=== PATIENT | female | born 1950 | race Caucasian/White ===

== ENCOUNTER 2017-06-26 19:52 | Inpatient (IN) | payer MEDICARE ==
[~2017-06-26 19:52] MED LIST: ISOVUE-370 76%-LOCM 1 ML ONE
[2017-06-26 21:02] LABS: #Eosinphils 0.1 thou/uL (0.0-0.7); #Lymphocytes 2.1 thou/uL (1.20-3.40); #Monocytes 0.7 thou/uL (0.11-0.59); %Basophils 0.3 % (0.0-1.0); %Eosinophils 1.4 % (0.0-10.0); %Lymphocytes 20.9 % (21.0-51.0); %Monocytes 6.7 % (0.0-10.0); %Neutrophils 70.7 % (42.0-75.0); Mean Corpuscular Hemoglobin 29.8 pg (27.0-31.0); Mean Corpuscular Volume 87.6 fl (81.0-99.0); Mean Platelet Volume 7.3 fL (7.4-10.4); Platelet Count 249 thou/uL (130-400); Red Blood Cell (RBC) Count 4.71 mill/uL (4.20-5.40); White Blood Cell (WBC) Count 9.9 thou/uL (4.8-10.8)
[2017-06-26 21:29] LABS: ALT (SGPT) 15 U/L (8-55); AST (SGOT) 18 U/L (5-34); Alkaline Phosphatase 100 U/L (40-150); Anion Gap 11 mmol/L (10-20); BUN (Urea Nitrogen) 14 mg/dL (9.8-20.1); Bilirubin, Total 0.2 mg/dL (0.2-1.2); Calc. Creatinine Clearance 0 mL/min (70-130); Calcium 9.8 mg/dL (7.8-10.44); Carbon Dioxide 27 mmol/L (23-31); Chloride 103 mmol/L (98-107); Estimated GFR-MDRD 61; Globulin 3.2 g/dL (2.4-3.5); Glucose 151 mg/dL (80-115); Potassium 3.5 mmol/L (3.5-5.1); Protein, Total 7.2 g/dL (6.0-8.3); Sodium 137 mmol/L (136-145)
[2017-06-26 21:32] LABS: CKMB 1.2 ng/mL (0-6.6); Troponin I 0.035 ng/mL (< 0.028)
[2017-06-26 21:40] LABS: Bilirubin Negative (Negative); Blood, Urine Negative (Negative); Clarity CLEAR (Clear); Glucose, Urine (Dipstick) Negative (Negative); Leukocyte Negative (Negative); Nitrite Negative (Negative); Protein, Urine (Dipstick) Negative (Neg-Trace); Specific Gravity, Urine 1.037 (1.002-1.036); Urobilinogen 0.2 mg/dL (0.2-1.0); pH, Urine 6.5 (5.0-9.0)
--- NOTE | 2017-06-26 21:40 | CT ---
CONTRAST ENHANCED CTA CHEST: History: Chest pain. Technique: Contrast enhanced CTA of the chest was performed. 2D and 3D reconstructed images performed on a 3D workstation. FINDINGS: CTA chest demonstrates no definite evidence of pulmonary parenchymal lesions. No definite evidence of lymphadenopathy is seen. Extensive coronary artery calcifications seen. No evidence of pleural or pericardial effusions seen. A large hiatal hernia is seen. No definite evidence of filling defects seen in the pulmonary arteries to suggest pulmonary emboli. There is some fullness seen in the right adrenal gland, possibly representing a right adrenal mass. C orrelation with possible adrenal MRI electively may be of use to further characterize the right adren al asymmetry. IMPRESSION: 1. Large hiatal hernia. 2. Coronary artery calcifications. 3. Possible right adrenal mass. 4. No evidence of pulmonary emboli. POS: MONA
[2017-06-26] MEDS ORDERED: Nitroglycerin 0.4 MG TAB (25 Tab Bottle) PO PRN (23:31)
[2017-06-26] MEDS ORDERED: Enoxaparin Sodium 100 MG/ML SYRINGE ONE (23:34)
[2017-06-27 00:28] LABS: Troponin I 0.083 ng/mL (< 0.028)
[2017-06-27] MEDS ORDERED: Senokot 8.6 MG TAB PO PRN (00:31)
[2017-06-27] MEDS ORDERED: Acetaminophen 325 MG TAB PO PRN (00:31)
[2017-06-27] MEDS ORDERED: Ondansetron ODT 4 MG TAB SL PRN (00:50)
[2017-06-27] MEDS ORDERED: Ondansetron HCl/PF 4 MG/2 ML Vial IVP PRN (00:50)
--- NOTE | 2017-06-27 01:42 | HP ---
CHIEF COMPLAINT: Chest pain. HISTORY OF PRESENT ILLNESS: Patient is a very pleasant 66-year-old female who presents to the [facility] with complaints of chest tightness x1 day. Patient states that she was at work when she started f eeling chest pressure, felt that a very warm sensation and had some dizziness. Patient denies radiat ion of her chest pain to her upper extremities or her neck area. Denies any nausea, vomiting, or nydia rtness of breath. Patient stated that she has never had this pain before. Patient denies any orthop nelida, PND, or recent increased swelling in her lower extremity. Patient states that symptoms when she goes up and down the stairs. At times on exertion, she does get a little short of breath. Patient states that she has never had catheterization before, but has had a stress test in the past, which paulino s been negative. PAST MEDICAL HISTORY: History of hypertension, hypercholesterolemia. ALLERGIES: She has got no known allergies. MEDICATIONS: She takes something for hypertension and hypercholesterolemia. She does not know her m edications. PAST SURGICAL HISTORY: She has had an appendectomy. SOCIAL HISTORY: She smokes half a pack a day. Denies any alcohol or drug use. She starts smoking [facility] a pack a day for about 4 months ago. Prior to that, she was smoking a pack a day. FAMILY HISTORY: Mother had heart disease. Father was killed when she was a young child and brothers and sisters both had bypass around her same age area. REVIEW OF SYSTEMS: A 12-point review of systems, all the other was negative, except for the ones men tioned in the HPI: Constitutional: Weight loss or gain, sense of well-being, ability to conduct [facility] activities, exercise tolerance. Skin/Breast: Rash, itching, changes in hair growth or loss, nail changes, breast lumps, tenderness, swelling, nipple discharge. Eyes: Vision, double vision, tearin g, blind spots, pain. ENT/Mouth: Headaches (location, time of onset, duration, precipitating factor s), vertigo, lightheadedness, injury. Vision, double vision, tearing, blind spots, pain, nose bleedi ng, colds, obstruction, discharge, dental difficulties, gingival bleeding, dentures, neck stiffness, pain, tenderness, masses in thyroid or other areas. Cardiovascular: Precordial pain, substernal dis tress, palpitations, syncope, dyspnea on exertion, orthopnea, nocturnal paroxysmal dyspnea, edema, cy anosis, hypertension, heart murmurs, varicosities, phlebitis, claudication. Respiratory: Pain, shor tness of breath, wheezing, stridor, cough, hemoptysis, fever or night sweats. Gastrointestinal: Poo r appetite, dysphagia, indigestion, abdominal pain, heartburn, eructation, nausea, vomiting, hemateme sis, jaundice, constipation, or diarrhea, abnormal stools (jackie-colored, tarry, bloody, greasy, foul smelling), flatulence, hemorrhoids, recent changes in bowel habits. Genitourinary: Urgency, frequen cy, dysuria, nocturia, hematuria, polyuria, oliguria, unusual (or change in) color of urine, stones, hesitancy, change in size of stream, dribbling, acute retention or incontinence, libido, potency. Mu sculoskeletal: Pain, swelling, redness or heat of muscles or joints, limitation, of motion, muscular weakness, atrophy, cramps. Neurologic/Psychiatric: Convulsions, paralyses, tremor, incoordination, paresthesias, difficulties with memory of speech, sensory or motor disturbances, or muscular coordin ation (ataxia, tremor), emotional problems, anxiety, depression, previous psychiatric care, unusual p erceptions, hallucinations. Allergy/Immunologic: Skin rash, anemia, bleeding tendency, polydipsia, polyuria, intolerance to heat or cold. PHYSICAL EXAMINATION. VITAL SIGNS: Temperature of 98.3, 94% on room air, and heart rate is 90, 164/70. GENERAL: She is awake, alert, oriented x3. Does not appear in any distress. CARDIOVASCULAR: S1, S2 present. No murmurs, rubs, or gallops. Pain upon palpation of the chest wal l area. HEENT: Normocephalic, atraumatic. NECK: No lymphadenopathy noted. LUNGS: Clear to auscultation. No rhonchi, wheezes noted. ABDOMEN: Soft, nontender. Bowel sounds are present x2. No hepatomegaly, splenomegaly; however, pat ient's abdomen is obese. NEURO: Awake, alert, oriented. No focal deficits noted. SKIN: Warm, dry, and intact. No rashes, lesions, or edema noted. PSYCHIATRIC: She is normal affect. LABORATORY RESULTS: Are as the following, her BNP was 12.4. Troponin was 0.035. Sodium was 137, po tassium of 3.5, chloride of 103, BUN of 14, creatinine 0.92, glucose was 151. D-dimer was elevated a t 0.98, so she underwent a CTA of the chest which indicated a large hiatal hernia, coronary artery ca lcification, possible right adrenal mass, and no evidence of pulmonary emboli. WBCs of 9.9, hemoglob in of 14.0, hematocrit of 41.2. No ST elevation or depression noted. ASSESSMENT AND PLAN: Patient is a very pleasant 66-year-old female who presents to the hospital with complaints of chest pain. 1. [id number] elevation myocardial infarction. We will start patient on some Lovenox 1 mg/kg b. i.d. We will continue to trend troponins. We will consult Cardiology. We will also do a stress lasha t, given patient's risk factors of hypertension, high-cholesterol, and smoking history. She is a hig h risk for coronary artery disease. We will also check a lipid level in the morning. Patient does h ave a significant large hiatal hernia, which could be causing her to have the chest pain, however, un known. 2. Hypertension. We will continue her home medications. 3. Right adrenal mass, which was noted on the CTA. Patient will need an outpatient workup. 4. Hypercholesterolemia. We will start patient back on her statin tonight. 5. Smoking cessation. Patient educated upon smoke cessation; however, she states she is not ready. She refused a patch.
[2017-06-27 03:29] LABS: #Basophils 0.1 thou/uL (0.0-0.2); #Eosinphils 0.2 thou/uL (0.0-0.7); #Lymphocytes 3.1 thou/uL (1.20-3.40); #Monocytes 0.7 thou/uL (0.11-0.59); #Neutrophils 5.8 thou/uL (1.40-6.50); %Basophils 0.6 % (0.0-1.0); %Lymphocytes 31.6 % (21.0-51.0); %Monocytes 7.2 % (0.0-10.0); %Neutrophils 58.6 % (42.0-75.0); Hemoglobin 13.3 g/dL (12.0-16.0); Mean Corpuscular HGB CONC 33.6 g/dL (32.0-36.0); Mean Corpuscular Hemoglobin 29.3 pg (27.0-31.0); Mean Corpuscular Volume 87.3 fl (81.0-99.0); Platelet Count 254 thou/uL (130-400); RBC Distribution Width 12.1 % (11.5-14.5); Red Blood Cell (RBC) Count 4.54 mill/uL (4.20-5.40); White Blood Cell (WBC) Count 9.8 thou/uL (4.8-10.8)
[2017-06-27 03:43] LABS: Anion Gap 10 mmol/L (10-20); BUN (Urea Nitrogen) 14 mg/dL (9.8-20.1); Calc. Creatinine Clearance 0 mL/min (70-130); Calcium 9.5 mg/dL (7.8-10.44); Carbon Dioxide 30 mmol/L (23-31); Cardiac Risk 3.8 (Less than 4.5); Chloride 103 mmol/L (98-107); Cholesterol 135 mg/dl (< 200 Desired); Estimated GFR-MDRD 61; Glucose 97 mg/dL (80-115); HDL Cholesterol 36 mg/dL (>60 Neg Risk); LDL Cholesterol, Calculated 71 mg/dL; Potassium 4.2 mmol/L (3.5-5.1); Sodium 139 mmol/L (136-145); Triglycerides 139 mg/dL (Less than 150)
[2017-06-27 03:47] LABS: Troponin I 0.085 ng/mL (< 0.028)
[2017-06-27 04:25] VITALS: BMI 33.5
[2017-06-27 06:20] LABS: CKMB 1.4 ng/mL (0-6.6); Troponin I 0.055 ng/mL (< 0.028)
[2017-06-27] MEDS ORDERED: Aspirin 325 MG TAB PO SCH (09:00)
[2017-06-27] MEDS ORDERED: Enoxaparin Sodium 100 MG/ML SYRINGE SC SCH (09:00)
--- NOTE | 2017-06-27 09:26 | PDOC.PN ---
- Subjective Encounter Start Date: 06/27/17 Encounter Start Time: 11:00 Subjective: Patient with some soreness to left chest, no further pain. No other -: complaints. - Objective Resuscitation Status: Resuscitation Status FULL:Full Resuscitation MAR Reviewed: Yes Vital Signs & Weight: Vital Signs (12 hours) Temp Pulse Resp BP Pulse Ox 06/27/17 07:48 98.2 F 66 16 142/80 H 94 L 06/27/17 03:36 98.0 F 76 16 145/73 H 94 L 06/27/17 00:34 98.0 F 76 16 155/83 H 93 L Weight Weight 195 lb 8 oz I&O: 06/26/17 06/27/17 06/28/17 06:59 06:59 06:59 Intake Total 120 Balance 120 Result Diagrams: 06/27/17 03:16 06/27/17 03:16 Phys Exam - Physical Examination Constitutional: NAD HEENT: moist MMs Respiratory: no wheezing, no rales, no rhonchi TTP left anterior chest wall reproduces pain Cardiovascular: RRR, no significant murmur Gastrointestinal: soft, positive bowel sounds Neurological: non-focal, moves all 4 limbs Psychiatric: normal affect, A&O x 3 Dx/Plan (1) Chest pain, rule out acute myocardial infarction Code(s): R07.9 - CHEST PAIN, UNSPECIFIED Status: Acute Comment: Indeterminate troponins, stable on recheck, neg EKG. Patient with coronary calcifications on CT. Will check stress test. If abnormal will need cardiology consultation. (2) HTN (hypertension) Code(s): I10 - ESSENTIAL (PRIMARY) HYPERTENSION Status: Chronic (3) Hyperlipidemia Code(s): E78.5 - HYPERLIPIDEMIA, UNSPECIFIED Status: Chronic (4) Tobacco abuse Code(s): Z72.0 - TOBACCO USE Status: Chronic (5) Adrenal mass, right Code(s): E27.9 - DISORDER OF ADRENAL GLAND, UNSPECIFIED Status: Acute Comment: f/u for outpatient workup - Plan cont current plan of skilled nursing if stress test negative * . - Discharge Day Encounter end time: 11:15
[2017-06-27 11:28] VITALS: BP 145/78; TEMP 98.4
--- NOTE | 2017-06-27 11:53 | NM ---
MYOCARDIAL PERFUSION AND QUANTITATIVE GATED SPECT STUDY: HISTORY: Chest pain. DOSE: 33 mCi of Technetium 99m Cardiolite for the stress portion of the exam and 11 mCi for the resting por tion of the exam. FINDINGS: The patient was stressed using 0.4 mg of LexiScan given IV. Heart rate ronan from 84 b.p.m. up to a m aximum of 134 b.p.m. which radiates 88% of maximum age-predicted heart rate. Myocardial effusion is unremarkable. No evidence of reversible defect is seen. No evidence of myoca rdial ischemia or scar is seen. Ejection fraction measures 86%. IMPRESSION: Normal myocardial perfusion and quantitative gated SPECT study. POS: MON[facility]
[2017-06-27] MEDS ORDERED: Regadenoson 0.4 MG/5 ML SYRINGE ONE (14:01)
[2017-06-27] MEDS ORDERED: Atorvastatin Calcium 40 MG TAB PO SCH (21:00)
--- NOTE | 2017-06-28 04:47 | DIS ---
PRIMARY CARE PHYSICIAN: ANN Mcdowell REASON FOR ADMISSION: Chest pain. DIAGNOSES AT DISCHARGE: 1. Chest pain, resolved. 2. Hypertension. 3. Hyperlipidemia. 4. Tobacco abuse. 5. Incidental finding of possible right adrenal mass. PROCEDURES: 1. CT angio of the chest and thorax showing large hiatal hernia, coronary artery calcifications, pos sible right adrenal mass fullness seen there unable to characterize the size. MRI recommended no david dence of pulmonary emboli. 2. Nuclear medicine stress test showing no evidence for ischemic heart disease or scar. CONSULTATIONS: None. PERTINENT LABORATORY DATA: Initial troponin 0.083, 0.085, and 0.055 before discharge. Fasting trigl ycerides are 139 and fasting cholesterol is 135. SUMMARY OF HOSPITAL COURSE: This is a 66-year-old female with history of chest tightness for 1 day o n the left side, associated with a warm sensation and some dizziness. She was seen in the emergency room, had no EKG changes and did have the indeterminate troponins and elevated D-dimer. CTA was done with above results. Patient was admitted to the hospital. Stress test was done due to patient's ri sk factors, and the stress test come back negative. Patient's chest pain resolved during the hospita lization. She has some left chest soreness; however, which reproduced the pain on palpation. She wa s discharged to follow up with primary care physician. She also was instructed to follow up about th e possible right adrenal mass. DISCHARGE MANAGEMENT: Discharged home. Follow up with primary care physician in 3 days. We will ne ed an MRI for the right adrenal mass. ACTIVITY: As tolerated. DIET: Healthy-heart diet. MEDICATIONS: Patient is to resume all her medications: 1. Amlodipine 5 mg daily. 2. Atorvastatin 20 mg daily. 3. Lisinopril/hydrochlorothiazide 20/12.5 mg daily.
== END 2017-06-27 14:06 | disposition home or self-care (01) | DRG 313 ==
LOC: ERS 19:52 → 2SE 06-27 00:07
PROVIDERS: ADMIT Internal Medicine; ATTEND Internal Medicine
DX: R07.9 Chest pain, unspecified (principal); I10 Essential (primary) hypertension; E78.5 Hyperlipidemia, unspecified; F17.210 Nicotine dependence, cigarettes, uncomplicated; Z79.899 Other long term (current) drug therapy; E27.9 Disorder of adrenal gland, unspecified
CPT/HCPCS: 36415; 71275; 78452; 80048; 80061; 82553; 83880; 84484; 85025; 85379; 93005; 93017; 96372; A9500; J1650; J2785

== ENCOUNTER 2017-07-21 05:52 | Inpatient (IN) | payer MEDICARE ==
[2017-07-21] MEDS ORDERED: Lidocaine 1% (PF) 30 ML VIAL ONE (06:50)
[2017-07-21] MEDS ORDERED: Fentanyl 100 MCG/2 ML VIAL ONE (06:53)
[2017-07-21] MEDS ORDERED: Midazolam HCl 2 mg/2 ml Vial ONE (06:53)
[2017-07-21] MEDS ORDERED: Diazepam 5 MG TAB ONE (07:19)
[2017-07-21] MEDS ORDERED: Diazepam 5 MG TAB PO SCH (07:45)
[2017-07-21 07:48] LABS: PTT 33.3 SEC (22.9-36.1); Prothrombin Time 13.5 SEC (12.0-14.7)
[2017-07-21] MEDS ORDERED: Nitroglycerin 100MG/250ML BOT 250 ML ONE (08:21)
[2017-07-21] MEDS ORDERED: Heparin 10,000 UNITS/1 ML VIAL ONE (08:21)
[2017-07-21] MEDS ORDERED: Verapamil 5 MG/2 ML VIAL ONE (08:21)
[2017-07-21] MEDS ORDERED: Ondansetron HCl/PF 4 MG/2 ML Vial IVP PRN (12:27)
[2017-07-21] MEDS ORDERED: Milk Of Magnesia 30 ML UDCUP PO PRN (12:27)
[2017-07-21] MEDS ORDERED: Diazepam 5 MG TAB PO PRN (12:31)
[2017-07-21] MEDS ORDERED: Communication Order-Pharmacy FS SCH (12:31)
--- NOTE | 2017-07-21 13:04 | CON ---
DATE OF CONSULTATION: 07/21/2017 HISTORY OF PRESENT ILLNESS: Ms. 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 When she has been vacuuming, she has noted that she has become increasingly more fatigued earlier serene n she should. She was recently in the hospital. During that time, she stopped smoking. She also paulino d a negative stress test. Due to her symptomatology, she underwent cardiac catheterization today. H er ejection fraction is approximately 60% on left ventriculogram. She has 3-vessel disease with pote ntial bypassable targets including LAD, diagonal, OM, and distal right coronary. I have been asked t o see her to discuss coronary artery bypass grafting. PAST MEDICAL HISTORY: 1. Hypertension. 2. Hyperlipidemia. PAST SURGICAL HISTORY: Appendectomy. CURRENT MEDICATIONS: 1. Atorvastatin 20 mg at bedtime. 2. Lisinopril/HCTZ 20/12.5 daily. ALLERGIES: None. SOCIAL HISTORY: She just recently quit smoking. She is and accompanied by her and s on. REVIEW OF SYSTEMS: Ten-point review of systems is performed and is negative except as above. PHYSICAL EXAMINATION: GENERAL: This is a well-developed, well-nourished woman resting comfortably in bed. VITAL SIGNS: Height 5 feet 4 inches, weight 200 pounds, BSA is 2.02, heart rate is 74 and regular, b lood pressure is 127/76. HEENT: Sclerae nonicteric. Pupils are equal and round bilaterally. NECK: Supple without bruit. CHEST: Clear bilaterally. HEART: Rhythm is regular without murmur. ABDOMEN: Soft and nontender. EXTREMITIES: No cyanosis, clubbing or edema. VASCULAR: There is palpable carotid, radial, femoral, and dorsalis pedis pulses bilaterally. VENOUS: There are no venous varicosities or venous stasis changes. PSYCHIATRIC: The patient is awake, alert, and oriented to person, place, and time. ASSESSMENT AND PLAN: Very pleasant 66-year-old woman with 3-vessel disease and preserved left ventri cular function. Risks, benefits, and options of coronary artery bypass grafting have been discussed and she is agreeable to proceed. We will plan on getting her in the hospital and have surgery tomorr ow.
[2017-07-21 13:19] LABS: Hemoglobin A1c 5.9 % (4.0-6.0)
--- NOTE | 2017-07-21 14:16 | RAD ---
TWO VIEWS CHEST: Comparison: 06-26-17 History: Pre-operative radiograph. FINDINGS: Two views of the chest show normal sized cardiomediastinal silhouette. There is no evidence of consol idation, mass, or pleural effusion. Mild degenerative changes are seen in the spine. IMPRESSION: No evidence of acute cardiopulmonary disease. POS: H
--- NOTE | 2017-07-21 14:32 | EKG ---
Test Reason : PREOP Blood Pressure : / mmHG Vent. Rate : 059 BPM Atrial Rate : 059 BPM P-R Int : 152 ms QRS Dur : 078 ms QT Int : 420 ms P-R-T Axes : 068 007 028 degrees QTc Int : 415 ms Sinus bradycardia Otherwise normal ECG When compared with ECG of 26-JUN-2017 20:05, Vent. rate has decreased BY 34 BPM Criteria for Inferior infarct are no longer Present Non-specific change in ST segment in Lateral leads Nonspecific T wave abnormality no longer evident in Lateral leads Confirmed by TONNY BEASLEY ([id number]) on 07/21/2017 2:31:50 PM Referred By: JAYDON Confirmed By:TONNY BEASLEY
[2017-07-21] MEDS ORDERED: Nitroglycerin 0.4 MG TAB (25 Tab Bottle) SL PRN (15:06)
[2017-07-21] MEDS ORDERED: traMADol HCl 50 MG TAB PO PRN (15:06)
[2017-07-21] MEDS ORDERED: Acetaminophen/Codeine 30-300mg Tablet PO PRN ×2 (15:06)
[2017-07-21] MEDS ORDERED: Sodium Chloride 0.9% 1,000 ML IV SCH (15:06)
[2017-07-21] MEDS ORDERED: Famotidine/PF 20 mg/2ml Vial SLOW IVP SCH (21:00)
[2017-07-21] MEDS: Famotidine 20 MG TAB PO SCH (21:02)
[2017-07-22] MEDS ORDERED: CEFAZOLIN/Water 2 GM/20 ML SYRINGE SLOW IVP SCH (05:00)
[2017-07-22] MEDS ORDERED: CEFAZOLIN/Water 2 GM/20 ML SYRINGE ONE (06:12)
[2017-07-22] MEDS ORDERED: Albumin 5% 500 ML ONE (06:24)
[2017-07-22] MEDS ORDERED: Dexmedetomidine 200 MCG/2 ML VIAL ONE (06:37)
[2017-07-22] MEDS ORDERED: Heparin 10,000 UNITS/1 ML VIAL 30,000 UNITS in Sodium Chloride 0.9% 1,000 ML FS SCH (07:00)
[2017-07-22] MEDS ORDERED: Midazolam HCl 2 mg/2 ml Vial ONE (07:29)
[2017-07-22] MEDS ORDERED: PHENYLEPHRINE-NS 100 MCG/ML 10 ML SYRINGE ONE ×2 (09:00→15:49)
[2017-07-22] MEDS ORDERED: Insulin Regular 300 UNITS/3 ML VIAL ONE (09:00)
[2017-07-22] MEDS: Famotidine 20 MG TAB PO SCH (09:00)
[2017-07-22] MEDS ORDERED: Phenylephrine HCL 10 MG/ML VIAL ONE (09:01)
[2017-07-22 13:18] LABS: Actual Bicarbonate (HCO3a) 26.9 mEq/L (22-28); Base Excess (BEa) 1.6 mEq/L (-2.0 to +3.0); CO2 Tension 45.4 mmHg (35.0-45.0); O2 Tension (PaO2) 164.2 mmHg (> 80.0); pH, Arterial 7.39 (7.35-7.45)
[2017-07-22 13:19] LABS: Hemoglobin (Hb) 10.4 g/dL (12.0-16.0)
[2017-07-22 13:20] LABS: Calcium, Ionized 1.1 mmol/L (1.12-1.30); Puncture Site A-LINE
--- NOTE | 2017-07-22 13:20 | RAD ---
PORTABLE SUPINE CHEST: Date: 07/22/17 HISTORY: Post sternotomy evaluation. FINDINGS/IMPRESSION: ET tube is in place with tip above guido. Central line has tip overlying the right atrium. Chest amie inage catheters are noted. The lungs are aerated and clear of infiltrate. Mild vascular congestion is noted. POS: [facility]
[2017-07-22] MEDS ORDERED: Hetastarch 6% 500 ML 500 ML IVPB PRN (13:22)
[2017-07-22] MEDS ORDERED: Bisacodyl 10 MG SUPP PR PRN (13:22)
[2017-07-22] MEDS ORDERED: Bisacodyl 5 MG TAB PO PRN (13:22)
[2017-07-22] MEDS ORDERED: Fentanyl 100 MCG/2 ML VIAL SLOW IVP PRN (13:22)
[2017-07-22] MEDS ORDERED: D5 1/2 NS w/20 mEq KCL 1,000 ML IV SCH (13:22)
[2017-07-22] MEDS ORDERED: Promethazine HCl 25 MG/ML VIAL IM PRN (13:22)
[2017-07-22] MEDS ORDERED: Acetaminophen 325 MG TAB PO PRN (13:22)
[2017-07-22] MEDS ORDERED: HYDROcodone/Acetaminophen 5/325 mg Tablet PO PRN (13:22)
[2017-07-22] MEDS ORDERED: hydrALAZINE 20 MG/ML VIAL SLOW IVP PRN (13:22)
[2017-07-22] MEDS ORDERED: Ondansetron HCl/PF 4 MG/2 ML Vial IVP PRN (13:22)
[2017-07-22] MEDS ORDERED: Guaifenesin DM 100-10/5 ML UDCUP PO PRN (13:22)
[2017-07-22] MEDS ORDERED: Mag-Al 1200 mg/1200 mg/30 ML UDCUP PO PRN (13:22)
[2017-07-22] MEDS ORDERED: Magnesium 2 GM/NS 0.9% 100 ML 2 GM in Premix Bag 1 BAG IVPB SCH (13:22)
[2017-07-22] MEDS ORDERED: Norepinephrine 8 MG/0.9% NS 250 ML IVPB PRN (13:22)
[2017-07-22] MEDS ORDERED: Potassium Chloride 20 MEQ/100 ML PREMIX BAG IVPB PRN (13:22)
[2017-07-22] MEDS ORDERED: Post-Op Insulin Drip Protocol IVPB ONE (13:22)
[2017-07-22] MEDS ORDERED: Nitroglycerin 50 MG/250 ML BOT 250 ML IVPB PRN (13:22)
[2017-07-22] MEDS ORDERED: Insulin Regular 300 UNITS/3 ML VIAL SC PRN (13:36)
[2017-07-22] MEDS ORDERED: Dextrose 5% in Water 1,000 ML IV PRN (13:36)
[2017-07-22] MEDS ORDERED: Dextrose 50% Abboject 50 ML SYRINGE SLOW IVP PRN (13:36)
[2017-07-22 13:40] LABS: PTT 31.5 SEC (22.9-36.1)
[2017-07-22 13:41] LABS: INR-International Normal Ratio 1.5; Prothrombin Time 18.1 SEC (12.0-14.7)
[2017-07-22 13:42] LABS: Anion Gap 5 mmol/L (10-20); BUN (Urea Nitrogen) 12 mg/dL (9.8-20.1); Calc. Creatinine Clearance 92 mL/min (70-130); Carbon Dioxide 31 mmol/L (23-31); Chloride 110 mmol/L (98-107); Estimated GFR-MDRD 67; Glucose 103 mg/dL (80-115); Potassium 3.7 mmol/L (3.5-5.1); Sodium 142 mmol/L (136-145)
[2017-07-22 13:45] LABS: #Eosinphils 0.2 thou/uL (0.0-0.7); #Lymphocytes 1.4 thou/uL (1.20-3.40); #Monocytes 0.8 thou/uL (0.11-0.59); #Neutrophils 8.3 thou/uL (1.40-6.50); %Basophils 0.4 % (0.0-1.0); %Eosinophils 1.4 % (0.0-10.0); %Lymphocytes 12.7 % (21.0-51.0); %Monocytes 7.4 % (0.0-10.0); %Neutrophils 78.1 % (42.0-75.0); Mean Corpuscular HGB CONC 34.4 g/dL (32.0-36.0); Mean Corpuscular Hemoglobin 29.7 pg (27.0-31.0); Mean Corpuscular Volume 86.2 fl (81.0-99.0); Mean Platelet Volume 7.9 fL (7.4-10.4); Platelet Count 121 thou/uL (130-400); Red Blood Cell (RBC) Count 3.36 mill/uL (4.20-5.40); White Blood Cell (WBC) Count 10.7 thou/uL (4.8-10.8)
[2017-07-22] MEDS: Ketorolac Tromethamine 30 MG/ML VIAL IVP SCH ×2 (13:45→20:51)
--- NOTE | 2017-07-22 14:02 | PDOC.CTH ---
Cardiology Progress Note - Subjective She had CABG earlier today. Currently intubated but following commands. - Objective Vital Signs Temp Pulse Resp BP BP Pulse Ox 07/22/17 13:22 73 102/57 L 07/22/17 03:52 97.9 F 80 18 129/61 95 Weight 200 lb 07/21/17 07/22/17 07/23/17 06:59 06:59 06:59 Intake Total 988 Output Total 450 Balance 538 - Physical Examination General/Neuro: alert & oriented x3, NAD Neck: no JVD present Lungs: CTA, unlabored respirations Heart: RRR Abdomen: NT/ND Extremities: other: (1+ left leg) - Telemetry Telemetry Rhythm: NSR - Labs Result Diagrams: 07/22/17 12:09 07/22/17 12:09 - Assessment/Plan 1. Multivessel CAD 2. S/P CABG 3. Tobacco abuse. PLAN: - Continue supportive care. - Aspirin and statin for life - BB and ACEI once BP allows. - Will follow.
--- NOTE | 2017-07-22 14:19 | OP ---
DATE OF PROCEDURE: 07/22/2017 PREOPERATIVE DIAGNOSES: Coronary artery disease/hypertension/hyperlipidemia. POSTOPERATIVE DIAGNOSES: Coronary artery disease/hypertension/hyperlipidemia. PROCEDURE: Coronary artery bypass grafting x4: 1. Left internal mammary artery in sequence to a 1.25 mm diagonal and 1.25 mm distal LAD. 2. Reverse saphenous vein to 1.5 mm OM. 3. Reverse saphenous vein to 2.5 mm distal RCA. SURGEONS: Dr. Mehdi Spangler, Dr. Casey La. ANESTHESIA: General endotracheal, Dr. Dick Aiken and . PUMP TIME: 66 minutes. CROSS-CLAMP TIME: 40 minutes. LOW CORE TEMP: 32-degree Celsius. MAINTENANCE MECHANIC ELEVATORS: Neli Ortega. DRAINS: 24-Slovenian chest tubes x2. DRIPS: None. TRANSFUSIONS: None. PROCEDURE IN DETAIL: After consent was obtained, the patient was brought to the operating room and p laced in the supine position on the operating room table. Appropriate anesthetic monitor was placed and general endotracheal anesthesia induced. Chest, abdomen, and legs were prepped and draped in usu al sterile fashion. Using endoscopic technique, the left greater saphenous vein was harvested from t he thigh. Wound was irrigated and closed in layers. Median sternotomy was performed. Left internal mammary artery was harvested as a pedicle graft. The patient was systemically heparinized. Distal pedicle was divided and infused with papaverine. Thymic fat and pericardium were divided with electr ocautery. Pericardial stay sutures were placed. Aortic and atrial cannulation was performed. After adequate heparinization, retrograde prime was performed. The patient was placed on cardiopulmonary bypass. Distal targets were marked. Aortic cross-clamp was applied and antegrade sanguinous cardiop legic arrest obtained. One liter of antegrade cold [place] cardioplegia was given. Topical cold so lution was used. Reverse saphenous vein was anastomosed distal RCA in end-to-side fashion with runni ng 7-0 Prolene suture. Anastomosis was tested and was hemostatic. Reverse saphenous vein was anasto mosed to the OM and saphenous running 7-0 Prolene suture. Anastomosis was tested and was hemostatic. Mammary artery was brought through a window in the pericardium and anastomosed the diagonal in a si de-to-side fashion and the LAD in end-to-side fashion. On release of mammary clamps, good hooding in the anastomosis and good distal flow. Pedicle secured with interrupted 6-0 Prolene suture. Cross-c lamp was removed and partial occluding clamp placed. Saphenous veins were anastomosed individual pun ch sites with running 6-0 Prolene suture. Partial occluding clamp removed and grafts deaired. Anast omoses were inspected for hemostasis, which was good. The patient was warmed and weaned from cardiop ulmonary bypass. After resumption of sinus rhythm, good hemodynamics, and temperature greater than 3 6.5, bypass was discontinued. Transfusions were given. Protamine was administered. Decannulation w as performed and pursestring sutures secured. After adequate hemostasis had been obtained, sternum w as treated with vancomycin paste. A 24-Slovenian chest tubes were placed in mediastinum x2. Again, hem ostasis was ensured. Sternum was closed with #7 wire. Sternum was treated with platelet-rich plasma , and wires twisted. Wounds were irrigated, treated with platelet-poor plasma, and closed in multipl e layers. Needle, sponge, and instrument counts were all reported correct at the end of the procedur e.
[2017-07-22] MEDS: CEFAZOLIN/Water 2 GM/20 ML SYRINGE SLOW IVP SCH ×2 (15:18→21:02)
[2017-07-22] MEDS ORDERED: Heparin 30,000 units/30 ml VIAL ONE (15:49)
[2017-07-22] MEDS ORDERED: Vecuronium 10 MG VIAL ONE (15:49)
[2017-07-22] MEDS ORDERED: Thrombin 5000 UNITS/5 ML VIAL ONE (15:49)
[2017-07-22] MEDS ORDERED: Papaverine 60 MG/2 ML VIAL ONE (15:49)
[2017-07-22] MEDS ORDERED: Heparin 5,000 UNITS/ML VIAL ONE (15:49)
[2017-07-22] MEDS ORDERED: Sodium Bicarb 50 MEQ/50 ML VIAL ONE (15:49)
[2017-07-22] MEDS ORDERED: Metoprolol Tartrate 5 MG/5 ML VIAL ONE (15:49)
[2017-07-22] MEDS ORDERED: Protamine Sulfate 250 MG/25 ML VIAL ONE (15:49)
[2017-07-22] MEDS ORDERED: Potassium Chlo 10 mEq/5 ml Syr ONE (15:49)
[2017-07-22] MEDS ORDERED: Magnesium 5 GM/10 ML VIAL ONE (15:49)
[2017-07-22] MEDS ORDERED: Lidocaine 2% PF 100 mg/5 ml Syringe ONE (15:49)
[2017-07-22] MEDS ORDERED: Glycopyrrolate 0.2 MG/ML 5 ML SYRINGE ONE (15:49)
[2017-07-22] MEDS ORDERED: Mannitol 12.5 GM/50 ML ONE (15:49)
[2017-07-22] MEDS ORDERED: ePHEDrine/0.9% NaCl/PF SYRINGE 50 mg/10 ml ONE (15:49)
[2017-07-22] MEDS ORDERED: Cardioplegic Soln 1,000 ML BAG ONE (15:49)
[2017-07-22] MEDS ORDERED: Albumin 25% 25 GM/100 ML BOT ONE (15:49)
[2017-07-22] MEDS ORDERED: PROPOFOL 200 MG/20 ML VIAL ONE (15:49)
[2017-07-22] MEDS ORDERED: Calcium Chloride 1 GM/10 ML Abboject SYRINGE ONE (15:49)
[2017-07-22] MEDS: Fentanyl 100 MCG/2 ML VIAL SLOW IVP PRN ×3 (15:56→23:14)
[2017-07-22 17:12] LABS: Hemoglobin 10.6 g/dL (12.0-16.0)
[2017-07-22 17:47] LABS: Potassium 4.4 mmol/L (3.5-5.1)
[2017-07-22] MEDS: Famotidine/PF 20 mg/2ml Vial SLOW IVP SCH (20:55)
[2017-07-23] MEDS: Ketorolac Tromethamine 30 MG/ML VIAL IVP SCH ×4 (01:05→21:29)
[2017-07-23] MEDS: HYDROcodone/Acetaminophen 5/325 mg Tablet PO PRN ×5 (04:42→23:42)
[2017-07-23 04:51] LABS: #Lymphocytes 1.4 thou/uL (1.20-3.40); #Monocytes 0.9 thou/uL (0.11-0.59); #Neutrophils 7.9 thou/uL (1.40-6.50); %Basophils 0.1 % (0.0-1.0); %Eosinophils 0.2 % (0.0-10.0); %Lymphocytes 13.7 % (21.0-51.0); %Monocytes 9.2 % (0.0-10.0); %Neutrophils 76.9 % (42.0-75.0); Hemoglobin 9.8 g/dL (12.0-16.0); Mean Corpuscular HGB CONC 32.7 g/dL (32.0-36.0); Mean Corpuscular Hemoglobin 28.7 pg (27.0-31.0); Mean Corpuscular Volume 87.5 fl (81.0-99.0); Platelet Count 139 thou/uL (130-400); RBC Distribution Width 12.2 % (11.5-14.5); Red Blood Cell (RBC) Count 3.41 mill/uL (4.20-5.40); White Blood Cell (WBC) Count 10.3 thou/uL (4.8-10.8)
[2017-07-23 05:02] LABS: Anion Gap 9 mmol/L (10-20); BUN (Urea Nitrogen) 14 mg/dL (9.8-20.1); Calc. Creatinine Clearance 106 mL/min (70-130); Calcium 7.9 mg/dL (7.8-10.44); Carbon Dioxide 27 mmol/L (23-31); Chloride 106 mmol/L (98-107); Estimated GFR-MDRD 75; Glucose 118 mg/dL (80-115); Sodium 138 mmol/L (136-145)
[2017-07-23] MEDS: CEFAZOLIN/Water 2 GM/20 ML SYRINGE SLOW IVP SCH (05:33)
[2017-07-23 06:29] VITALS: BMI 35.0
[2017-07-23] MEDS ORDERED: Dextrose 5% in Water 1,000 ML IV PRN ×2 (08:49→13:51)
[2017-07-23] MEDS ORDERED: Dextrose 50% Abboject 50 ML SYRINGE SLOW IVP PRN ×2 (08:49→13:51)
[2017-07-23] MEDS ORDERED: Insulin Regular 300 UNITS/3 ML VIAL SC PRN (08:49)
[2017-07-23] MEDS: Famotidine/PF 20 mg/2ml Vial SLOW IVP SCH (08:54)
[2017-07-23] MEDS ORDERED: Aspirin 325 MG TAB PO SCH (09:00)
[2017-07-23] MEDS ORDERED: Magnesium 2 GM/NS 0.9% 100 ML 2 GM in Premix Bag 1 BAG IVPB SCH (09:00)
--- NOTE | 2017-07-23 09:02 | RAD ---
PORTABLE CHEST: Date: 07/23/17 COMPARISON: Prior day's exam. HISTORY: Postop open heart surgery. FINDINGS: Heart size is enlarged. There are postop sternotomy changes. Right subclavian line remains in place. Endotracheal tube has been removed. Left chest tube remains in unchanged position. Subsegmental atele ctatic changes are seen in the bases. IMPRESSION: Interval removal of the endotracheal tube. Otherwise no interval change. POS: JOSE ROBERTO
[2017-07-23] MEDS ORDERED: Acetaminophen 325 MG TAB PO PRN (12:44)
[2017-07-23] MEDS ORDERED: Nitroglycerin 0.4 MG TAB (25 Tab Bottle) SL PRN (12:44)
[2017-07-23] MEDS ORDERED: Guaifenesin DM 100-10/5 ML UDCUP PO PRN (12:44)
[2017-07-23] MEDS ORDERED: Fentanyl 100 MCG/2 ML VIAL SLOW IVP PRN (12:44)
[2017-07-23] MEDS ORDERED: HYDROcodone/Acetaminophen 5/325 mg Tablet PO PRN (12:44)
[2017-07-23] MEDS ORDERED: Mag-Al 1200 mg/1200 mg/30 ML UDCUP PO PRN (12:44)
[2017-07-23] MEDS ORDERED: Bisacodyl 10 MG SUPP PR PRN (12:44)
[2017-07-23] MEDS ORDERED: Ondansetron HCl/PF 4 MG/2 ML Vial IVP PRN (12:44)
[2017-07-23] MEDS ORDERED: Mineral Oil ENEMA PR PRN (12:44)
[2017-07-23] MEDS: Insulin Regular 300 UNITS/3 ML VIAL SC PRN ×2 (16:41→21:30)
[2017-07-23] MEDS ORDERED: Atorvastatin Calcium 40 MG TAB PO SCH (21:00)
[2017-07-23] MEDS: Atorvastatin Calcium 20 MG TAB PO SCH (21:30)
[2017-07-23] MEDS: Famotidine 20 MG TAB PO SCH (21:30)
[2017-07-24] MEDS: Ketorolac Tromethamine 30 MG/ML VIAL IVP SCH ×4 (03:01→20:27)
[2017-07-24] MEDS: HYDROcodone/Acetaminophen 5/325 mg Tablet PO PRN ×4 (04:54→20:30)
[2017-07-24] MEDS ORDERED: Sodium Chloride 0.9% 10 ML ONE ×2 (08:22→15:09)
[2017-07-24] MEDS: Famotidine 20 MG TAB PO SCH ×2 (08:39→20:29)
[2017-07-24] MEDS: Aspirin 325 mg Enteric Coated Tablet PO SCH (08:39)
[2017-07-24] MEDS: Potassium Chloride 10 MEQ TAB PO SCH (08:39)
[2017-07-24] MEDS: Metoprolol Tartrate 25 MG TAB PO SCH ×2 (08:40→20:29)
[2017-07-24] MEDS ORDERED: Furosemide 40 MG TAB PO SCH (09:00)
--- NOTE | 2017-07-24 09:54 | RAD ---
PORTABLE CHEST: Date: 07/24/17 HISTORY: Chest tube removal. COMPARISON: Prior day's exam. FINDINGS: Heart size is enlarged. There are postop sternotomy changes. Left chest tube has been removed. No pne umothorax. Parenchymal lung changes remain stable. Right subclavian line unchanged in position. IMPRESSION: Stable exam other than removal of left chest tube. POS: [facility]
[2017-07-24] MEDS: Atorvastatin Calcium 20 MG TAB PO SCH (20:28)
[2017-07-25] MEDS: Ketorolac Tromethamine 30 MG/ML VIAL IVP SCH ×4 (03:12→20:39)
[2017-07-25] MEDS: HYDROcodone/Acetaminophen 5/325 mg Tablet PO PRN ×2 (03:13→19:17)
[2017-07-25] MEDS ORDERED: Metolazone 5 MG TAB PO SCH (06:30)
[2017-07-25] MEDS: Famotidine 20 MG TAB PO SCH ×2 (08:18→20:40)
[2017-07-25] MEDS: Furosemide 40 MG TAB PO SCH ×2 (08:18→13:53)
[2017-07-25] MEDS: Metoprolol Tartrate 25 MG TAB PO SCH ×2 (08:18→20:40)
[2017-07-25] MEDS: Potassium Chloride 10 MEQ TAB PO SCH (08:19)
[2017-07-25] MEDS: Aspirin 325 mg Enteric Coated Tablet PO SCH (08:19)
[2017-07-25] MEDS: Bisacodyl 5 MG TAB PO PRN (19:17)
[2017-07-25] MEDS: Atorvastatin Calcium 20 MG TAB PO SCH (20:40)
[2017-07-26] MEDS: Ketorolac Tromethamine 30 MG/ML VIAL IVP SCH ×3 (02:03→14:34)
[2017-07-26] MEDS ORDERED: Metolazone 5 MG TAB PO SCH (06:45)
[2017-07-26] MEDS: Metoprolol Tartrate 25 MG TAB PO SCH ×2 (08:38→21:24)
[2017-07-26] MEDS: Famotidine 20 MG TAB PO SCH ×2 (08:38→21:23)
[2017-07-26] MEDS: Furosemide 40 MG TAB PO SCH ×2 (08:40→14:34)
[2017-07-26] MEDS: Aspirin 325 mg Enteric Coated Tablet PO SCH (08:40)
[2017-07-26] MEDS: Potassium Chloride 10 MEQ TAB PO SCH (08:40)
[2017-07-26] MEDS: Ubidecarenone 50 MG CAP PO SCH (08:40)
[2017-07-26] MEDS: Bisacodyl 5 MG TAB PO PRN (14:36)
[2017-07-26] MEDS: Atorvastatin Calcium 20 MG TAB PO SCH (21:23)
[2017-07-26] MEDS: HYDROcodone/Acetaminophen 5/325 mg Tablet PO PRN (21:25)
[2017-07-27] MEDS: HYDROcodone/Acetaminophen 5/325 mg Tablet PO PRN (05:08)
[2017-07-27 08:08] VITALS: TEMP 98.2
[2017-07-27] MEDS: Aspirin 325 mg Enteric Coated Tablet PO SCH (08:46)
[2017-07-27] MEDS: Metoprolol Tartrate 25 MG TAB PO SCH (08:47)
[2017-07-27] MEDS: Ubidecarenone 50 MG CAP PO SCH (08:47)
[2017-07-27] MEDS: Potassium Chloride 10 MEQ TAB PO SCH (08:47)
[2017-07-27] MEDS: Furosemide 40 MG TAB PO SCH (08:47)
[2017-07-27] MEDS: Famotidine 20 MG TAB PO SCH (08:48)
--- NOTE | 2017-07-27 13:03 | DIS ---
DATE OF ADMISSION: 07/21/2017 DATE OF DISCHARGE: 07/27/2017 DIAGNOSES: 1. Coronary artery disease. 2. Obesity. 3. Hypertension. 4. Hyperlipidemia. PROCEDURES: 1. Cardiac catheterization. 2. Coronary artery bypass grafting performed on 07/22/2017 - left internal mammary artery in sequenc e to D1 and LAD. 3. Reverse saphenous vein to OM. 4. Reverse saphenous vein to RCA. DESCRIPTION OF HOSPITAL STAY: Ms. Caputo was admitted electively for cardiac catheterization. She wa s found to have critical 3-vessel disease and was taken to the operating room the following morning f or bypass as above. Postoperatively, she has done well. She quit smoking approximately a week befor e being admitted to the hospital and has had some pulmonary dysfunction, but otherwise has had no iss ues. She has had no rhythm disturbances. At the time of discharge, she is ambulatory, tolerating a regular diet, having good bowel and bladder function. Incisions are clean and dry without evidence o f infection. DISCHARGE MEDICATIONS: Include, 1. Aspirin 325 mg every day. 2. Lipitor 20 mg every day. 3. Lasix 40 mg b.i.d. for 5 days. 4. Potassium 10 mEq daily for 5 days. 5. Lopressor 12.5 mg b.i.d. 6. [place] 5/325 1-2 q.6 hours p.r.n. pain. FOLLOWUP: Follow up is with in [address] Hutchinson in a month.
[2017-07-27 13:26] VITALS: BP 137/70
== END 2017-07-27 11:50 | disposition home or self-care (01) | DRG 234 ==
LOC: CCL 05:52 → 2NO 14:47 → CCU 07-22 10:27 → 2NO 07-23 18:22
PROVIDERS: ADMIT Thoracic Surgery (Cardiothoracic Vascular Surgery); ATTEND Internal Medicine Cardiovascular Disease
PROC: 4A023N7 Measurement of Cardiac Sampling and Pressure, Left Heart, Percutaneous Approach (ICD-10-PCS; 2017-07-21)
PROC: B2111ZZ Fluoroscopy of Multiple Coronary Arteries using Low Osmolar Contrast (ICD-10-PCS; 2017-07-21)
PROC: B2151ZZ Fluoroscopy of Left Heart using Low Osmolar Contrast (ICD-10-PCS; 2017-07-21)
PROC: 02110Z9 Bypass Coronary Artery, Two Arteries from Left Internal Mammary, Open Approach (ICD-10-PCS; principal; 2017-07-22)
PROC: 021109W Bypass Coronary Artery, Two Arteries from Aorta with Autologous Venous Tissue, Open Approach (ICD-10-PCS; 2017-07-22)
PROC: 06BQ4ZZ Excision of Left Saphenous Vein, Percutaneous Endoscopic Approach (ICD-10-PCS; 2017-07-22)
PROC: 5A1221Z Performance of Cardiac Output, Continuous (ICD-10-PCS; 2017-07-22)
DX: I25.10 Atherosclerotic heart disease of native coronary artery without angina pectoris (principal); I10 Essential (primary) hypertension; E78.5 Hyperlipidemia, unspecified; E66.9 Obesity, unspecified; F17.210 Nicotine dependence, cigarettes, uncomplicated; Z68.36 Body mass index [BMI] 36.0-36.9, adult; Z79.899 Other long term (current) drug therapy
CPT/HCPCS: 36415; 36416; 36430; 71045; 71046; 80048; 82805; 83036; 85025; 85610; 85730; 86850; 86900; 86901; 93005; 93010; 93458; 93798; 94002; 94640; 99152; A4216; C1769; J1642; J1644; J1815; J1885; J2001; J2150; J2250; J2270; J2370; J2405; J2440; J2550; J2704; J2720; J3010; J3370; J3475; J3480; J7050; J7620; P9045; P9047; S0028

== ENCOUNTER 2017-09-17 12:31 | Observation (INO) | payer MEDICARE ==
[2017-09-17 15:04] LABS: Troponin I Less than 0.010 ng/mL (< 0.028)
[2017-09-17] MEDS ORDERED: Ondansetron ODT 4 MG TAB SL PRN (15:06)
[2017-09-17] MEDS ORDERED: Ondansetron HCl/PF 4 MG/2 ML Vial IVP PRN (15:06)
[2017-09-17 15:16] VITALS: BMI 34.0
[2017-09-17] MEDS ORDERED: hydrALAZINE 20 MG/ML VIAL SLOW IVP PRN (17:48)
[2017-09-17] MEDS ORDERED: Ketorolac Tromethamine 30 MG/ML VIAL IVP PRN (17:50)
[2017-09-17 17:56] LABS: Troponin I Less than 0.010 ng/mL (< 0.028)
[2017-09-17] MEDS ORDERED: Lisinopril 10 MG TAB PO SCH (18:00)
[2017-09-17] MEDS: Acetaminophen 325 MG TAB PO PRN (18:05)
--- NOTE | 2017-09-17 18:51 | HP ---
CHIEF COMPLAINT: "I have high blood pressure and chest discomfort." HISTORIAN: The patient, reliable. HISTORY OF PRESENT ILLNESS: This is a 66-year-old female with past medical history of hypertension a nd hyperlipidemia presenting to the ED after being transferred from [facility] is seen for chief c omplaint of left-sided chest pain, which has been going on for one month. Per the patient, she had a CABG done on 07/22/2017 and after the surgical procedure, the patient has been having pain at the frankel rgical site. Per the patient, the pain is localized reproducible and is not radiating on the pain sc lela from 0-10. The patient states that the pain is 1/10. The patient states that she has associated symptoms of high blood pressure. Per the patient, she has been checking her blood pressure at home and her blood pressure has been around 192. The patient states that she used to take a medication wh ich she does not remember the name, but it was 12.5 and she was also taking lisinopril; however, duri ng her surgical procedure with the CABG, the patient was stopped from taking these medications and th patient was started on metoprolol. However, patient states that her blood pressure has been very u ncontrolled and due to her blood pressure being uncontrolled she has been having headaches and her fa ce has been turning. After that, the patient denies chest palpitations. She denies shortness of margarette ath, abdominal pain, constipation, diarrhea, urinary incontinence, burning with urination or increase d frequency with urination. REVIEW OF SYSTEMS: Positive for headaches, chest discomfort and negative for everything else and has been stated in the HPI and documented. PAST MEDICAL HISTORY: Hypertension and hyperlipidemia. PAST SURGICAL HISTORY: Appendectomy, CABG x4 on 07/22/2017. FAMILY HISTORY: The patient states that her mother, her brother and sister all had CABG done in the past and had heart issues. SOCIAL HISTORY: Patient is a former tobacco smoker. She has been smoking for 40 years and the patie nt said that she recently quit in 06/2017. The patient denies alcohol use. The patient denies drug use. PSYCH HISTORY: The patient does not have any previous psychiatric history that is noted. ALLERGIES: No known drug allergies. MEDICATIONS: 1. Patient takes Coenzyme Q10 . 2. Aspirin 81 mg. 3. Metoprolol 50 mg. 4. Atorvastatin 10 mg. PHYSICAL EXAMINATION: VITAL SIGNS: The patient's vitals in the ED 187/74, pulse of 66, respiratory rate of 22, O2 sat of 9 5 on room air. GENERAL APPEARANCE: The patient is lying comfortably in bed, states that she has a headache. Otherw ise, patient does not appear to be in any acute distress. HEENT: Normocephalic, atraumatic. Pupils are equally round and reactive to light. Extraocular move ments are intact. No scleral icterus. Mucous membranes are moist. NECK: Supple. No JVDs. RESPIRATORY: Good air intake. LUNGS: Clear to auscultation bilaterally. No wheezes, no rales, no rhonchus appreciated. CARDIAC: Tenderness at the sternum, mainly left upper chest. No murmurs, no rubs, no gallops apprec iated. Surgical scar appreciated at the sternum. ABDOMEN: Surgical scar appreciated at the abdomen. Soft, nontender, nondistended. No masses. No p ulsatile masses. No peritoneal signs, no rigidity, no guarding, no rebound, no resting signs appreci ated. BACK: Normal, back exams. EXTREMITIES: A 5/5 upper extremity strength. Good pulses bilaterally. A 5/5, lower extremity stren gth. No edema noted. NEUROLOGIC: Cranial nerves II-XII grossly intact. No focal neurologic deficits noted. SKIN: Warm, dry, and intact. No rashes appreciated. PSYCHIATRIC: The patient has normal affect. Alert, oriented x3. LABORATORY FINDINGS: Pertinent positives first set of troponins are negative. EKG showed possible l eft atrial enlargement, T-wave inversions at the anterior and lateral leads and prolonged QTC. ASSESSMENT AND PLAN: 1. Atypical chest pain most likely due to costochondritis. At this time, we will give the patient p ain control p.r.n. and we have ordered EKG in the morning. We will get cardiac consult. Shanelle navarrete We will follow up on her echo report and follow up with cardiology's recommendations. We will co ntinue the patient on aspirin, statin, and Metoprolol. 2. Hypertension, uncontrolled. At this point, we will start patient on lisinopril 10 mg. Continue metoprolol and we will start hydralazine p.r.n. Blood pressure is greater than 170 systolic. 3. History of hyperlipidemia. We will continue the patient on her home medication of atorvastatin. 4. History of hypertension. We will continue the patient on the above stated medications. 5. Deep venous thrombosis and gastrointestinal prophylaxis. There will be no chemical gastrointesti nal prophylaxis since the patient is eating and we encouraged the patient to ambulate. DISPOSITION: The patient is going to be monitored overnight and we are going to control the patient' s blood pressure. Regular followup with echo and follow up with Cardiology. If patient is cleared f rom Cardiology standpoint, then patient can be discharged tomorrow.
--- NOTE | 2017-09-17 20:03 | CON ---
DATE OF CONSULTATION: 09/17/2017 REASON FOR CONSULTATION: Chest pain. HISTORY OF PRESENT ILLNESS: Ms. Caputo is a very pleasant 66-year-old white female, who comes to the hospital for actually headaches. She tells me that she really has pain since had bypass back in July . Her pain is the same as always around her surgical site and towards the left side has some change significantly in the last few weeks. She noted the last 3 days that she started having blood pressur es in the 190s/90s and she started having a headache this morning, so she got worried about that and decided to come in. Currently, her headache is better. Her chest pain since she was discharge d from the bypass, actually a little bit better. PAST MEDICAL HISTORY: 1. Coronary artery disease. 2. Hypertension. 3. Hyperlipidemia. PAST SURGICAL HISTORY: 1. Coronary artery bypass grafting x4. 2. Appendectomy. OUTPATIENT MEDICATIONS: Include: 1. Aspirin 162 mg a day. 2. CoQ10. 3. Metoprolol 50 mg a day. 4. Lipitor 10 mg at bedtime. ALLERGIES: No known drug allergies. SOCIAL HISTORY: Quit smoking after the surgery. No drug use or alcohol use. FAMILY HISTORY: Noncontributory. REVIEW OF SYSTEMS: A 12-point review of systems was done and is all negative unless stated in the hi story of present illness. PHYSICAL EXAMINATION: VITAL SIGNS: Temperature 98.1, pulse 71, respiratory rate 18, satting 95% on room air, blood pressur e 181/76. In the ER, her blood pressure was 180s/70s. HEENT: Normocephalic, atraumatic. NECK: Supple. LUNGS: Clear. CARDIOVASCULAR: S1, S2. No S3, S4. No murmurs. Pain to palpation on the mid sternal area into the left bypass. ABDOMEN: Soft, positive bowel sounds. EXTREMITIES: Trace edema. SKIN: Warm and dry. LABORATORY DATA AND IMAGING: Laboratory work was reviewed. CBC and CMP were unremarkable. Troponin is negative x3. BNP was 120. Albumin was 4.1. Lipase was normal. UA was unremarkable. EKG was reviewed, normal sinus rhythm, no ischemic changes. Chest x-ray was unremarkable. ASSESSMENT AND PLAN: 1. Chest pain: This is chronic from her bypass and unchanged. 2. Hypertensive urgency: Her biggest problem was headache and elevated blood pressure. We will pedro n on adding an SATHYA inhibitor to her regimen and up titrating this as an outpatient. We will start he r on lisinopril at 10 mg a day, will up titrate to 20 in the next few days. Most likely, this should be enough and should be able to be discharged home tomorrow. Thank you for letting us to participate in the care of your patient.
[2017-09-17 20:56] LABS: Troponin I Less than 0.010 ng/mL (< 0.028)
[2017-09-17] MEDS ORDERED: Atorvastatin Calcium 20 MG TAB PO SCH (21:00)
[2017-09-18] MEDS: Acetaminophen 325 MG TAB PO PRN (04:12)
[2017-09-18 08:18] VITALS: TEMP 98.6
[2017-09-18] MEDS ORDERED: Metoprolol Tartrate 50 MG TAB PO SCH (09:00)
[2017-09-18] MEDS ORDERED: Lisinopril 10 MG TAB PO SCH (09:00)
[2017-09-18] MEDS ORDERED: Ubidecarenone 50 MG CAP PO SCH (09:00)
[2017-09-18 11:54] VITALS: BP 141/63
--- NOTE | 2017-09-18 20:31 | PDOC.CTH ---
Cardiology Progress Note - Subjective She is doing well. BP is better controlled. No chest pain other than her normal pain after her CABG. - Objective Vital Signs Temp Pulse Resp BP Pulse Ox 09/18/17 11:53 98.6 F 57 L 16 141/63 H 94 L Weight 198 lb 3 oz 09/17/17 09/18/17 09/19/17 06:59 06:59 06:59 Intake Total 600 720 Balance 600 720 - Physical Examination General/Neuro: alert & oriented x3, NAD Neck: no JVD present Lungs: CTA, unlabored respirations Heart: RRR Abdomen: NT/ND Extremities: other: (no edema) - Telemetry Telemetry Rhythm: NSR - Labs Troponin/CKMB Troponin I Less than 0.010 ng/mL (< 0.028) 09/17/17 20:20 - Assessment/Plan 1. HTN 2. Chest pain, wall pain after CAGB PLAN: - May d/c home today. - Follow up in 1 month for continued up titration of her medications. - Home on Lisinopril 10mg BID as new Rx.
--- NOTE | 2017-09-18 23:13 | DIS ---
BRIEF HISTORY: Patient was seen and examined by me on the day of discharge. The patient does not have any complaints at that time. The patient stated she was feeling better. The patient did not have any headaches, no chest pain, no palpitations. All physical exams were within normal limits and at baseline. DISCHARGE DIAGNOSES: 1. Hypertensive urgency. 2. Chest pain. 3. History of hyperlipidemia. 4. Hypertension. CONSULTATION: Cardiology. HOSPITAL COURSE: This is a 66-year-old female with past medical history of hypertension, hyperlipidemia who presented to the ED with elevated blood pressures and atypical chest pain. Per the patient, her chest pain was reproducible; however, the patient received aspirin in the ED and nitro, echo was ordered. Echo reporrt was WNL. Cardiology was consulted. Patient was then admitted to telemetry floor for observation. Patient's blood pressure on the floor was 196 systolic. Patient was then started on lisinopril. Patient's blood pressure was controlled. The patient was then discharged home after echo came back normal. DISCHARGE MEDICATIONS: Patient was discharged on lisinopril 10 b.i.d., and all of patient's home medications, kindly refer to electronic medical record for the patient's home medications which the patient was discharged home on. DISPOSITION: The patient was discharged in good and stable condition. The patient did not have any complaints at that time. Discharge encounter took about ~ 33 mins. This dictation was done by Dr. Orion Can on patient, Harshal Wood. [facility]
== END 2017-09-18 14:36 | disposition home or self-care (01) ==
LOC: ERS 12:31 → 2SW 15:12
PROVIDERS: ADMIT Internal Medicine; ATTEND Internal Medicine
DX: R07.89 Other chest pain (principal); I16.0 Hypertensive urgency; I10 Essential (primary) hypertension; E78.5 Hyperlipidemia, unspecified; I25.10 Atherosclerotic heart disease of native coronary artery without angina pectoris; Z87.891 Personal history of nicotine dependence; Z79.82 Long term (current) use of aspirin; Z79.899 Other long term (current) drug therapy; Z95.1 Presence of aortocoronary bypass graft
CPT/HCPCS: 84484; 93005; 93306; 94760; 99285; G0378 ×2; 36415

== ENCOUNTER 2018-07-07 16:11 | Emergency (ER) | payer MEDICARE | END 2018-07-07 18:29 | disposition home or self-care (01) | LOC: ERS 16:11 | DX: R42 Dizziness and giddiness (principal); Z87.891 Personal history of nicotine dependence | CPT/HCPCS: 93005 ==